=== PATIENT | female | born 1995 | race Caucasian/White ===

== ENCOUNTER 2016-09-23 11:04 | Observation (INO) ==
[2016-09-23 11:33] LABS: Clarity,Urine Clear (Clear); Color,Urine Yellow (Yellow)
[2016-09-23 11:34] LABS: Bilirubin,Urine Negative (Negative); Blood,Urine Negative (Negative); Glucose,Urine (UA) Normal (Normal); Ketones,Urine Negative (Negative); Leukocyte Esterase,Urine Negative (Negative); Nitrite,Urine Negative (Negative); PH,Urine 6.5 pH Units (5.0-8.0); Protein,Urine Negative (Neg-Trace); Specific Gravity,Urine 1.017 (1.010-1.025); Urobilinogen,Urine Normal (Normal)
--- NOTE | 2016-09-23 11:58 | Discharge Summary ---
Date of Encounter: 09/23/16 Time of Encounter: 11:59 - Discharge Diagnosis (1) 24 weeks gestation of Priority: Secondary Status: Acute Comments: FHT's 120's with moderate variabilty. No contractions noted on toco. uterus palpates soft. Patient states good movement. Denies leaking of fluid, vaginal bleeding, burning with urination. (2) Muscle strain Priority: Primary Status: Acute Comments: CVA tenderness on right side that radiates to suprapubic region. Pain is worse when on her feet at work. 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 Urinalysis negative Flexeril given in hospital x1 dose and discharged home. Patient to rest at home on left side for the rest of the weekend Patient may use warmth and tylenol at home for pain If pain has not improved by Sunday, will be seen in the office by Dr Najera Patient instructed on when to return to care POC discussed with Dr Najera - Discharge Medications Allergies/Adverse Reactions: Allergies cefuroxime [From Ceftin] Allergy (Verified 08/12/16 12:27) Vomiting Data Procedures and tests throughout hospitalization: Laboratory Tests 09/23/16 11:17 Urine Color Yellow Urine Clarity Clear Urine pH 6.5 Ur Specific [place] 1.017 Urine Protein Negative Urine Glucose (UA) Normal Urine Ketones Negative Urine Blood Negative Urine Nitrite Negative Urine Bilirubin Negative Urine Urobilinogen Normal Ur Leukocyte Esterase Negative Ur Culture Indicated? NO Labs on day of discharge: Labs from last 24 hours 09/23/16 11:17 Urine Color Yellow Urine Clarity Clear Urine pH 6.5 Ur Specific [place] 1.017 Urine Protein Negative Urine Glucose (UA) Normal Urine Ketones Negative Urine Blood Negative Urine Nitrite Negative Urine Bilirubin Negative Urine Urobilinogen Normal Ur Leukocyte Esterase Negative Ur Culture Indicated? 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: Total time spent providing and/or coordinating discharge services: Time Spent: Less than 30 minutes Exam - Constitutional General appearance IM: cooperative, A&O X 3, pleasant - Respiratory Respiratory exam: Present: CTAB - Cardiovascular Cardiovascular exam IM: Present: RRR, +S1, +S2 - GI/Abdominal GI/Abdominal exam IM: normal bowel sounds, soft Additional comments: CVA tenderness on right side; lower abdominal tenderness - Additional comments: Funal height 2/u, soft, nontender, no contractions per TOCO FHT 120's with moderate variability - Extremities Exam Extremities exam IM: Present: full ROM, normal capillary refill, normal inspection, radial pulses palpable and symetrical - Neurological Exam Neurological exam: alert, oriented X3, reflexes normal - VTE Reasons for not Prescribing Prophylaxis: Treatment not Indicated - Low risk for VTE
== END 2016-09-23 12:21 | disposition home or self-care (01) ==
LOC: 1NENULAB
PROVIDERS: ADMIT Obstetrics & Gynecology; ATTEND Obstetrics & Gynecology

== ENCOUNTER → 2016-11-03 12:02 | Observation (INO) ==
[2016-11-03 08:12] VITALS: BP 140/78
[2016-11-03 08:20] LABS: Bilirubin,Urine Negative (Negative); Blood,Urine Negative (Negative); Clarity,Urine Cloudy (Clear); Color,Urine Yellow (Yellow); Glucose,Urine (UA) Normal (Normal); Ketones,Urine Negative (Negative); Leukocyte Esterase,Urine Moderate (Negative); Nitrite,Urine Negative (Negative); PH,Urine 6.5 pH Units (5.0-8.0); Protein,Urine Negative (Neg-Trace); Specific Gravity,Urine 1.018 (1.010-1.025); Urobilinogen,Urine Normal (Normal)
[2016-11-03 08:21] LABS: Bacteria,Urine Moderate per hpf (None-Few); Basophils # 0.1 K/mcL (0.0-0.2); Basophils % 0.3 %; Eosinophils # 0.1 K/mcL (0.0-0.6); Eosinophils % 0.6 %; Hemoglobin 11.9 g/dL (11.5-15.4); Hyaline Casts,Urine None Seen per lpf (None-Few); Immature Granulocytes % 1.1 % (0-4); Lymphocytes % 16.3 %; Mean Corpuscular Hemoglobin 30.1 pg (28.0-33.3); Mean Corpuscular Volume 88.4 fL (83.0-100.0); Mean Platelet Volume 8.7 fL (9.4-12.4); Monocytes # 1.4 K/mcL (0.0-1.3); Monocytes % 7.3 %; Neutrophils # 13.9 K/mcL (1.6-8.9); Platelet Count 396 K/mcL (140-400); RBC,Urine 0-3 per hpf (0-3); Red Blood Count 3.96 M/mcL (3.82-4.97); Red Cell Distribution Width 12.3 % (11.5-14.5); Segmented Neutrophils % 74.4 %; Squamous Epithelial Cell,Urine Many per lpf (None-Few); WBC,Urine 30-50 per hpf (0-3)
[2016-11-03 08:27] LABS: Alanine Aminotransferase 9 Units/L (0-55); Aspartate Amino Transferase 14 Units/L (5-34); BUN/Creatinine Ratio 12 (6-26); Blood Urea Nitrogen 7 mg/dL (7-20); Lactate Dehydrogenase 155 Units/L (159-327); Uric Acid 3.6 mg/dL (2.6-6.0); eGFR For African Americans > 60 (> 60); eGFR For Non-African Americans > 60 (> 60)
--- NOTE | 2016-11-03 10:31 | Discharge Summary ---
Date of Encounter: 11/03/16 Time of Encounter: 10:32 - Discharge Diagnosis (1) Urinary tract infection affecting care of mother in third trimester, antepartum Priority: Primary Status: Acute Comments: Patient arrives to labor and delivery triage with c.o nausea and vomiting with upper abdominal pain for the past 24 hours. She states that she currently has positive movement, but it was decreased upon waking this am. She does not complain of contractions or back pain. Her blood pressure is elevated upon arrival. She denies headache, vision changes, leaking of fluid, and vaginal bleeding/discharge. Plan: Serial blood pressures IV bolus of LR x 1 liter PIH labs Urinalysis and culture if indicated Zofran IV x 1 dose NST Urinalysis indicative of probable infection - Send urine for culture Start on Macrobid prophylactically Discharge home with labor precautions and kick counts Patient to follow up with routine care in office and prn POC per consult with Dr Perry. (2) Upper abdominal pain of unknown etiology Priority: Primary Status: Acute Comments: Patient c/o nausea and vomiting for 24 hours along with upper abdominal pain IV fluid bolus of 1 liter Zofran IV x 1 (3) Decreased movement Priority: Secondary Status: Acute Comments: NST ordered - reactive. minimal irregular contractions noted (4) 30 weeks gestation of Priority: Secondary Status: Acute Comments: F/U in office for routine care and PRN (5) NST (non-stress test) reactive Priority: Secondary Status: Acute Comments: Baseline 130's with moderate variability, 15 x15 accels, no decels, category I tracing Minimal irregular contractions noted on toco. Palpate mild, uterus palpates soft between contractions (6) Hypertension affecting in third trimester Priority: Secondary Status: Acute Comments: PIH labs sent and WNL Blood pressure improved during triage stay. 118/56 most recent pressure. - Discharge Medications Prescriptions: Nitrofurantoin (BID) [Macrobid] 100 mg PO BID #14 capsule Home Medications: Nitrofurantoin (BID) [Macrobid] 100 mg PO BID #14 capsule 11/03/16 [Rx] Allergies/Adverse Reactions: Allergies cefuroxime [From Ceftin] Allergy (Verified 08/12/16 12:27) Vomiting Data Procedures and tests throughout hospitalization: Laboratory Tests 11/03/16 11/03/16 11/03/16 08:05 08:05 08:05 WBC 18.7 H RBC 3.96 Hgb 11.9 Hct 35.0 L MCV 88.4 MCH 30.1 MCHC 34.0 RDW 12.3 Plt Count 396 MPV 8.7 L Immature Gran % 1.1 Seg Neutrophils % 74.4 Lymphocytes % 16.3 Monocytes % 7.3 Eosinophils % 0.6 Basophils % 0.3 Neutrophils # 13.9 H Lymphocytes # 3.0 Monocytes # 1.4 H Eosinophils # 0.1 Basophils # 0.1 BUN 7 Creatinine 0.59 Est GFR ( Amer) > 60 Est GFR (Non-Af Amer) > 60 BUN/Creatinine Ratio 12 Uric Acid 3.6 AST 14 ALT 9 Lactate Dehydrogenase 155 L Urine Color Yellow Urine Clarity Cloudy A Urine pH 6.5 Ur Specific [place] 1.018 Urine Protein Negative Urine Glucose (UA) Normal Urine Ketones Negative Urine Blood Negative Urine Nitrite Negative Urine Bilirubin Negative Urine Urobilinogen Normal Ur Leukocyte Esterase Moderate H Urine Microscopic RBC 0-3 Urine Microscopic WBC 30-50 H Ur Squamous Epith Cells Many H Urine Bacteria Moderate H Hyaline Casts None Seen Ur Culture Indicated? YES A Labs on day of discharge: Labs from last 24 hours 11/03/16 11/03/16 11/03/16 08:05 08:05 08:05 WBC 18.7 H RBC 3.96 Hgb 11.9 Hct 35.0 L MCV 88.4 MCH 30.1 MCHC 34.0 RDW 12.3 Plt Count 396 MPV 8.7 L Immature Gran % 1.1 Seg Neutrophils % 74.4 Lymphocytes % 16.3 Monocytes % 7.3 Eosinophils % 0.6 Basophils % 0.3 Neutrophils # 13.9 H Lymphocytes # 3.0 Monocytes # 1.4 H Eosinophils # 0.1 Basophils # 0.1 BUN 7 Creatinine 0.59 Est GFR ( Amer) > 60 Est GFR (Non-Af Amer) > 60 BUN/Creatinine Ratio 12 Uric Acid 3.6 AST 14 ALT 9 Lactate Dehydrogenase 155 L Urine Color Yellow Urine Clarity Cloudy A Urine pH 6.5 Ur Specific [place] 1.018 Urine Protein Negative Urine Glucose (UA) Normal Urine Ketones Negative Urine Blood Negative Urine Nitrite Negative Urine Bilirubin Negative Urine Urobilinogen Normal Ur Leukocyte Esterase Moderate H Urine Microscopic RBC 0-3 Urine Microscopic WBC 30-50 H Ur Squamous Epith Cells Many H Urine Bacteria Moderate H Hyaline Casts None Seen Ur Culture Indicated? 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: Total time spent providing and/or coordinating discharge services: Time Spent: Less than 30 minutes Exam - Constitutional Vitals: Temp Pulse Resp BP 97.9 F 90 14 140/78 11/03/16 08:08 11/03/16 08:08 11/03/16 08:08 11/03/16 08:08 General appearance IM: cooperative, A&O X 3, pleasant - Respiratory Respiratory exam: Present: CTAB - Cardiovascular Cardiovascular exam IM: Present: RRR, +S1, +S2 - GI/Abdominal GI/Abdominal exam IM: normal bowel sounds, soft - Rectal Rectal exam: deferred - Additional comments: Uterus soft, gravid, and appropriate for gestational age FHTs 130's with moderate variability, 15x15 accels, no decels, category I tracing Occasional contractions Reactive NST - Extremities Exam Extremities exam IM: Present: normal capillary refill, normal inspection - Neurological Exam Neurological exam: alert, oriented X3 - VTE Reasons for not Prescribing Prophylaxis: Treatment not Indicated - Low risk for VTE
[~2016-11-03 12:02] MED LIST: Ondansetron 4 MG/2 ML VIAL IVP SCH; Ondansetron 4 MG/2 ML VIAL ONE; Ringers Solution, Lactated 1,000 ML IVC ONE; Ringers Solution, Lactated 1,000 ML ONE
== END | disposition home or self-care (01) ==
LOC: 1NENULAB
PROVIDERS: ADMIT Obstetrics & Gynecology; ATTEND Obstetrics & Gynecology

== ENCOUNTER 2016-12-13 12:47 | Observation (INO) ==
[2016-12-13 13:56] LABS: Basophils % 0.3 %; Eosinophils # 0.1 K/mcL (0.0-0.6); Eosinophils % 0.9 %; Hematocrit 35.6 % (35.3-44.9); Hemoglobin 11.8 g/dL (11.5-15.4); Immature Granulocytes % 0.7 % (0-4); Lymphocytes # 2.8 K/mcL (0.6-4.6); Lymphocytes % 26.1 %; Mean Corpuscular HGB Conc 33.1 g/dL (31.6-35.5); Mean Corpuscular Hemoglobin 29.1 pg (28.0-33.3); Mean Corpuscular Volume 87.9 fL (83.0-100.0); Mean Platelet Volume 9.6 fL (9.4-12.4); Monocytes # 0.6 K/mcL (0.0-1.3); Monocytes % 5.2 %; Neutrophils # 7.2 K/mcL (1.6-8.9); Platelet Count 275 K/mcL (140-400); Red Blood Count 4.05 M/mcL (3.82-4.97); Red Cell Distribution Width 13.5 % (11.5-14.5); Segmented Neutrophils % 66.8 %
[2016-12-13 14:01] LABS: Bilirubin,Urine Negative (Negative); Blood,Urine Negative (Negative); Clarity,Urine Cloudy (Clear); Color,Urine Yellow (Yellow); Glucose,Urine (UA) Normal (Normal); Ketones,Urine Negative (Negative); Leukocyte Esterase,Urine Moderate (Negative); Nitrite,Urine Negative (Negative); PH,Urine 6.5 pH Units (5.0-8.0); Protein,Urine Negative (Neg-Trace); Specific Gravity,Urine 1.017 (1.010-1.025); Urobilinogen,Urine Normal (Normal)
[2016-12-13 14:02] LABS: Bacteria,Urine Moderate per hpf (None-Few); Hyaline Casts,Urine None Seen per lpf (None-Few); Squamous Epithelial Cell,Urine Many per lpf (None-Few); WBC,Urine 15-30 per hpf (0-3)
[2016-12-13 14:05] LABS: Protein/Creatinine Ratio,Urine 0.13 mg/mg (0-0.20)
[2016-12-13 14:09] LABS: Alanine Aminotransferase 10 Units/L (0-55); Aspartate Amino Transferase 19 Units/L (5-34); BUN/Creatinine Ratio 12 (6-26); Blood Urea Nitrogen 8 mg/dL (7-20); Lactate Dehydrogenase 191 Units/L (159-327); Uric Acid 4.9 mg/dL (2.6-6.0); eGFR For African Americans > 60 (> 60); eGFR For Non-African Americans > 60 (> 60)
--- NOTE | 2016-12-13 14:21 | OB/GYN Progress Note ---
Date of Encounter: 12/13/16 Time of Encounter: 14:18 - Assessment and Plan (1) 36 weeks gestation of Current Visit: Yes Status: Acute (2) Hypertension affecting in third trimester Current Visit: No Status: Acute BP normal prior to discharge. Labs WNL. UPCR normal. Discharge home with precautions. Follow-up as scheduled. Subjective - Subjective Interval history: 21 year-old presenting at 36w1d with c/o headache and elevated blood pressures at home. She denies LOF or VB. Good FM. No other complaints. She says the headache is 6/10 at her temples and around the back of her head. She does admit that these headaches occur frequently for her at baseline. Antepartum ROS: movement normal, no loss of fluid, no vaginal bleeding, no contractions Objective - Vital Signs Vital Signs: Intake and Output 12/12/16 12/13/16 12/13/16 23:59 07:59 15:59 Other: Weight 79.5 kg Patient Weight 12/13/16 23:59 Weight 79.5 kg - Exam FHR: category 1 FHR comments: NST reactive Auscultation: bilateral: normal Abdomen: Present: soft, gravid Uterus: Absent: tenderness - Labs Labs: Abnormal lab results Urine Clarity Cloudy (Clear) A 12/13/16 13:40 Ur Leukocyte Esterase Moderate (Negative) H 12/13/16 13:40 Urine Microscopic WBC 15-30 per hpf (0-3) H 12/13/16 13:40 Ur Squamous Epith Cells Many per lpf (None-Few) H 12/13/16 13:40 Urine Bacteria Moderate per hpf (None-Few) H 12/13/16 13:40 Ur Culture Indicated? YES (NO) A 12/13/16 13:40
== END 2016-12-13 14:26 | disposition home or self-care (01) ==
LOC: 1NENULAB
PROVIDERS: ADMIT Obstetrics & Gynecology; ATTEND Obstetrics & Gynecology

== ENCOUNTER → 2016-12-15 01:05 | Observation (INO) ==
--- NOTE | 2016-12-14 23:50 | OB/GYN Progress Note ---
Date of Encounter: 12/15/16 Time of Encounter: 23:47 - Assessment and Plan (1) induced hypertension Status: Acute Pt's BP 147/94 on admission. Last BPs 134/86, 137/87 which is consistant with previous vitals. PIH labs are negative. NST reactive On admission, vaginal exam /-2 per RN, consistant with exam in office .. Pt complains of contractions every 1-2 times per hour, Pt seen in traige yesterday for elevated complaints with negative labs. . Keep next appointment. Discharged home with labor, movement and PIH precautions. Pt and family verbalized understanding . Discussed with NATHALIE Jesus. I saw this patient and reviewed charting in agreement with documented assessment and plan, other than my changes. Qualifiers: Trimester: third trimester Qualified Code(s): O13.3 - Gestational [ -induced] hypertension without significant proteinuria, third trimester (2) 36 weeks gestation of Status: Acute Pt follows care with Dr. Najera, last appt yesterday (3) NST (non-stress test) reactive Status: Acute Baseline bpm: 125 Moderate Variability Accels 15x15 Subjective - Subjective Principal diagnosis: PIH Evaluation Interval history: Ms. Nguyen is a 21 yo at 36 + 2 complaining of decreased movement, abdominal pain and headache. States headaches was a 7-8 at 3 PM s/p Tylenol, and now rates it at a 5-6 on admission. Abdominal pain resolved by admission. Pt was seen in office by Dr. Najera today for evaluation of self-reported home BP values noted first three days ago. PMHX include syncopal episodes last year which pt denies she has experienced in this and anxiety. Medications: She has not taken anticonvulsants during this . Is currently taken Buspar 5 mg BID daily. Social Hx: Endorses active marijuana use. Antepartum ROS: new complaints (decreased movement), contractions, other ( no vision changes, no chest pain, no SOB, no palpitation, no urinary symptoms), no loss of fluid, no vaginal bleeding Objective - Vital Signs Vital Signs: Intake and Output T: 97.4 BP: 137/87 12/14/16 12/14/16 12/14/16 07:59 15:59 23:59 Other: Weight 72.9 kg Patient Weight 12/14/16 23:59 Weight 72.9 kg - Exam FHR: category 1 FHR comments: Baseline 125 Abdomen: Present: normal appearance, soft, gravid Uterus: Present: normal Cervical dilation: 2, performed by RN Cervix effacement: 80
[2016-12-14 23:54] LABS: Bilirubin,Urine Negative (Negative); Blood,Urine Negative (Negative); Clarity,Urine Clear (Clear); Color,Urine Yellow (Yellow); Glucose,Urine (UA) Normal (Normal); Ketones,Urine Negative (Negative); Leukocyte Esterase,Urine Negative (Negative); Nitrite,Urine Negative (Negative); PH,Urine 6.5 pH Units (5.0-8.0); Protein,Urine Negative (Neg-Trace); Specific Gravity,Urine 1.025 (1.010-1.025); Urobilinogen,Urine Normal (Normal)
[2016-12-15 00:09] LABS: Basophils % 0.2 %; Eosinophils # 0.2 K/mcL (0.0-0.6); Eosinophils % 1.3 %; Hematocrit 34.6 % (35.3-44.9); Hemoglobin 11.7 g/dL (11.5-15.4); Immature Granulocytes % 0.8 % (0-4); Immature Platelets 2.9 % (1.1-6.1); Lymphocytes % 30.4 %; Mean Corpuscular HGB Conc 33.8 g/dL (31.6-35.5); Mean Corpuscular Hemoglobin 29.8 pg (28.0-33.3); Mean Corpuscular Volume 88.3 fL (83.0-100.0); Mean Platelet Volume 9.7 fL (9.4-12.4); Monocytes # 0.9 K/mcL (0.0-1.3); Monocytes % 6.9 %; Neutrophils # 7.8 K/mcL (1.6-8.9); Platelet Count 280 K/mcL (140-400); Red Blood Count 3.92 M/mcL (3.82-4.97); Red Cell Distribution Width 13.7 % (11.5-14.5); Segmented Neutrophils % 60.4 %
[2016-12-15 00:25] LABS: Alanine Aminotransferase 10 Units/L (0-55); Aspartate Amino Transferase 19 Units/L (5-34); BUN/Creatinine Ratio 18 (6-26); Blood Urea Nitrogen 12 mg/dL (7-20); Lactate Dehydrogenase 183 Units/L (159-327); Uric Acid 4.7 mg/dL (2.6-6.0); eGFR For African Americans > 60 (> 60); eGFR For Non-African Americans > 60 (> 60)
[2016-12-15 00:28] LABS: Protein/Creatinine Ratio,Urine 0.11 mg/mg (0-0.20)
== END | disposition home or self-care (01) ==
LOC: 1NENULAB
PROVIDERS: ADMIT Advanced Practice Midwife; ATTEND Advanced Practice Midwife

== ENCOUNTER 2016-12-18 08:40 | Observation (INO) ==
[2016-12-18 09:24] LABS: Basophils % 0.4 %; Eosinophils # 0.2 K/mcL (0.0-0.6); Eosinophils % 1.6 %; Hematocrit 35.6 % (35.3-44.9); Immature Granulocytes % 0.9 % (0-4); Lymphocytes % 26.3 %; Mean Corpuscular HGB Conc 33.7 g/dL (31.6-35.5); Mean Corpuscular Hemoglobin 29.9 pg (28.0-33.3); Mean Corpuscular Volume 88.6 fL (83.0-100.0); Mean Platelet Volume 9.5 fL (9.4-12.4); Monocytes # 0.7 K/mcL (0.0-1.3); Monocytes % 6.4 %; Neutrophils # 7.4 K/mcL (1.6-8.9); Platelet Count 241 K/mcL (140-400); Red Blood Count 4.02 M/mcL (3.82-4.97); Red Cell Distribution Width 13.9 % (11.5-14.5); Segmented Neutrophils % 64.4 %
[2016-12-18 09:26] LABS: Bilirubin,Urine Negative (Negative); Blood,Urine Negative (Negative); Clarity,Urine Cloudy (Clear); Color,Urine Yellow (Yellow); Glucose,Urine (UA) Normal (Normal); Ketones,Urine Negative (Negative); Leukocyte Esterase,Urine Small (Negative); Nitrite,Urine Negative (Negative); PH,Urine 6.5 pH Units (5.0-8.0); Protein,Urine Negative (Neg-Trace); Specific Gravity,Urine 1.025 (1.010-1.025); Urobilinogen,Urine Normal (Normal)
[2016-12-18 09:37] LABS: Alanine Aminotransferase 8 Units/L (0-55); Aspartate Amino Transferase 18 Units/L (5-34); BUN/Creatinine Ratio 16 (6-26); Blood Urea Nitrogen 10 mg/dL (7-20); Lactate Dehydrogenase 192 Units/L (159-327); Uric Acid 4.5 mg/dL (2.6-6.0); eGFR For African Americans > 60 (> 60); eGFR For Non-African Americans > 60 (> 60)
[2016-12-18 09:38] LABS: Bacteria,Urine Few per hpf (None-Few); Squamous Epithelial Cell,Urine Few per lpf (None-Few); WBC,Urine 0-3 per hpf (0-3)
[2016-12-18 10:00] LABS: Protein/Creatinine Ratio,Urine 0.14 mg/mg (0-0.20)
--- NOTE | 2016-12-18 10:02 | OB/GYN Progress Note ---
Date of Encounter: 12/18/16 Time of Encounter: 09:49 - Assessment and Plan (1) 36 weeks gestation of Current Visit: No Status: Acute (2) Hypertension affecting in third trimester Current Visit: No Status: Acute Patient has been evaluated in triage for PIH multiple times in the past during this . Will check PIH labs, P/c ratio to evaluate for pre-eclampsia. Will monitor BP. PIH labs and urine creatinine ratio are all WNL. Patients BPs have normalized: 134/72, 127/68, 133/82 for last 3 pressures this is patients baseline. Will discharge to home. Discussed labor and Pre-E precautions, when to return to triage or call provider, Pt and family verbalize understanding and all questions answered. Subjective - Subjective Principal diagnosis: PIH Interval history: 21 yo F at 36 weeks and 6 days presents to labor and delivery for PIH. Patient reports waking up this morning with a headache that feels similar to her headaches from when she had hypertension prior to . She used to have HTN but resolved once she lost 70lbs. Patient has been evaluated for this multiple times in the past during this . Patient checked blood pressure at home and it was reportedly 154/105 so she came in. She has been running the high 130s/high 80s in the office. She does report some bright spots/ floaters in her vision, but denies blurry vision. Patient reports good movements. Patient reports 1 epsiode of vomiting last night and 1 episode of diarrhea, as well as some mucus from her vagina. Patient denies Chest Pain, SOB , Abd pain, contractions, vaginal bleeding, loss of fluid, urinary symptoms. Antepartum ROS: movement normal, no loss of fluid, no vaginal bleeding, no contractions Objective - Vital Signs Vital Signs: Intake and Output 12/17/16 12/18/16 12/18/16 23:59 07:59 15:59 Other: Weight 80.3 kg Patient Weight 12/18/16 23:59 Weight 80.3 kg - Exam FHR: auscultation normal Auscultation: bilateral: normal Abdomen: Present: normal appearance, soft, gravid, other (bowel sounds normal). Absent: tenderness Cervical dilation: 1-2/70/-2 Per RN Comments: Heart RRR, Known murmur. HEENT: PERRL, EOMI, moist mucous membranes Extremities: no pedal edema, +1 DTR, - clonus - Labs Labs: Abnormal lab results WBC 11.4 K/mcL (4.3-11.1) H 12/18/16 09:15 Urine Clarity Cloudy (Clear) A 12/18/16 09:10 Ur Leukocyte Esterase Small (Negative) H 12/18/16 09:10 Ur Culture Indicated? YES (NO) A 12/18/16 09:10
== END 2016-12-18 10:38 | disposition home or self-care (01) ==
LOC: 1NENULAB
PROVIDERS: ADMIT Student in an Organized Health Care Education/Training Program; ATTEND Student in an Organized Health Care Education/Training Program

== ENCOUNTER 2016-12-21 00:41 | Observation (INO) ==
[2016-12-21 01:02] LABS: Bilirubin,Urine Negative (Negative); Blood,Urine Negative (Negative); Clarity,Urine Cloudy (Clear); Color,Urine Yellow (Yellow); Glucose,Urine (UA) Normal (Normal); Ketones,Urine Negative (Negative); Leukocyte Esterase,Urine Small (Negative); Nitrite,Urine Negative (Negative); PH,Urine 6.5 pH Units (5.0-8.0); Protein,Urine Trace mg/dL (Neg-Trace); Specific Gravity,Urine 1.028 (1.010-1.025); Urobilinogen,Urine Normal (Normal)
[2016-12-21 01:04] LABS: Bacteria,Urine Moderate per hpf (None-Few); Hyaline Casts,Urine None Seen per lpf (None-Few); RBC,Urine 0-3 per hpf (0-3); Squamous Epithelial Cell,Urine Many per lpf (None-Few)
--- NOTE | 2016-12-21 01:29 | Discharge Summary ---
Date of Encounter: 12/21/16 - Discharge Medications Home Medications: Buspirone HCl [Buspar] 5 mg PO BID 12/13/16 [History] Vit Calc,Iron,Folic [ Vitamins] 1 tab PO DAILY 12/13/16 [ History] Allergies/Adverse Reactions: Allergies cefuroxime [From Ceftin] Allergy (Verified 12/14/16 23:03) Vomiting Data Procedures and tests throughout hospitalization: Laboratory Tests 12/21/16 00:50 Urine Color Yellow Urine Clarity Cloudy A Urine pH 6.5 Ur Specific [place] 1.028 H Urine Protein Trace Urine Glucose (UA) Normal Urine Ketones Negative Urine Blood Negative Urine Nitrite Negative Urine Bilirubin Negative Urine Urobilinogen Normal Ur Leukocyte Esterase Small H Urine Microscopic RBC 0-3 Urine Microscopic WBC 5-15 H Ur Squamous Epith Cells Many H Urine Bacteria Moderate H Hyaline Casts None Seen Ur Culture Indicated? YES A Labs on day of discharge: Labs from last 24 hours 12/21/16 00:50 Urine Color Yellow Urine Clarity Cloudy A Urine pH 6.5 Ur Specific [place] 1.028 H Urine Protein Trace Urine Glucose (UA) Normal Urine Ketones Negative Urine Blood Negative Urine Nitrite Negative Urine Bilirubin Negative Urine Urobilinogen Normal Ur Leukocyte Esterase Small H Urine Microscopic RBC 0-3 Urine Microscopic WBC 5-15 H Ur Squamous Epith Cells Many H Urine Bacteria Moderate H Hyaline Casts None Seen Ur Culture Indicated? 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 FHR 35 bpm moderate variability +15x15 accels no decels noted. Contractions irregular. SVE 2/80/-2 per RN - VTE Reasons for not Prescribing Prophylaxis: Treatment not Indicated - Low risk for VTE
--- NOTE | 2016-12-21 01:36 | OB/GYN History & Physical ---
Date of Encounter: 12/21/16 Time of Encounter: 01:35 Assessment and Plan (1) 37 weeks gestation of Current visit: Yes Status: Acute Pt follows care with Dr. Najera. (2) NST (non-stress test) reactive Current visit: No Status: Acute FHT: Category I Baseline 135 bpm Variability: Moderate Accels:15 x 15 Contractions q 4-6 min (3) Hypertension affecting in third trimester Current visit: No Status: Acute Pt's BP 141/85 on admission. Plan to monitor FHT and initiative - induced hypertension evaluation. PIH labs are pending. NST reactive. On admission, vaginal exam /-2 per RN. Pt was seen 6 days ago with cervical assessment . Pt receives appropriate care with Dr. Najera. Pt amenable to plan and verbalized understanding (4) GBS (group B streptococcus) infection Current visit: Yes Status: Acute GBS positive on 12/14/16 Plan for Intrapartum antibiotic prophylaxis History of Present Illness Chief complaint: Back Pain HPI: Ms. Nguyen is a 21 year old F at 37+1 presenting for back pain following intercourse and contractions. She endorses active movement, but reports relative decrease in activity. Denies vaginal bleeding and denies loss of fluid. Pt has a history of headaches but they have resolved with her usual doses of analgesics. She denies blurred vision, flashing lights or scotomata. has been complicated by an elevated SBP >140 readings during most recent hospitalization and outpatient visit. Pt receives regular care with [facility]. ROS: Positive for intermittent headaches. Denies headache currently. No SOB. No chest pain. No N/V. labs: GBS POSITIVE/A NEG/Varicella IgG AB POS/Rubella IgG Ab Negative/ Treponema Pallidum Ab NEG/Hep B Surface Antigen Nonreative/HIV Ab Nontreacive Past Med Surg Social Fam HX - Past Medical History Medical history: seizures Psychiatric history: anxiety - Past Surgical History Surgical History: no surgical history - Social History Smoking Status: Former smoker Smokeless Tobacco Status: No Alcohol use: none Drug use: marijuana - Family History Mother Adopted: No Living Status: Still Living Hx Family Cardiac Disorders: Yes (HYPERTENSION) Obstetrical History - Pregnancies : 1 Para: 0 Medications and Allergies Buspirone HCl [Buspar] 5 mg PO BID 12/13/16 [History] Vit Calc,Iron,Folic [ Vitamins] 1 tab PO DAILY 12/13/16 [ History] Allergies cefuroxime [From Ceftin] Allergy (Verified 12/14/16 23:03) Vomiting Review of System OB - Constitutional Constitutional ROS IM: as per HPI - Cardiovascular Cardiovascular: as per HPI - Respiratory Respiratory: as per HPI - Gastrointestinal Gastrointestinal: as per HPI Exam - Constitutional Constitutional: well developed, well nourished, other - HEENT HEENT: EOMI, Normocephaly - Lungs Respiratory exam: CTAB (No chest wall tenderness. No accessory muscle use. No respiratory distress. ) - Cardiovascular Cardiovascular exam: RRR - Breasts Breast: bilateral: normal - Abdomen Abdomen: Present: bowel sounds normal, gravid, non tender - Extremities Extremities exam: pedal edema (+1), radial pulses palpable and symetrical ( Upper extremity: Left Hand: Wart centralized on left thumb) - Cervix Dilation: 2 (performed by RN) Effacement: 80 Station: -2 - Uterus Uterus exam: Present: normal size, normal contour Results Abnormal lab results Urine Clarity Cloudy (Clear) A 12/21/16 00:50 Ur Specific [place] 1.028 (1.010-1.025) H 12/21/16 00:50 Ur Leukocyte Esterase Small (Negative) H 12/21/16 00:50 Urine Microscopic WBC 5-15 per hpf (0-3) H 12/21/16 00:50 Ur Squamous Epith Cells Many per lpf (None-Few) H 12/21/16 00:50 Urine Bacteria Moderate per hpf (None-Few) H 12/21/16 00:50 Ur Culture Indicated? YES (NO) A 12/21/16 00:50 All other labs normal. - VTE Reasons for not Prescribing Prophylaxis: Treatment not Indicated - Low risk for VTE
[2016-12-21 02:47] LABS: Basophils % 0.3 %; Eosinophils # 0.2 K/mcL (0.0-0.6); Eosinophils % 1.2 %; Hematocrit 37.1 % (35.3-44.9); Hemoglobin 12.6 g/dL (11.5-15.4); Lymphocytes # 3.7 K/mcL (0.6-4.6); Lymphocytes % 24.2 %; Mean Corpuscular Hemoglobin 30.2 pg (28.0-33.3); Mean Platelet Volume 9.8 fL (9.4-12.4); Monocytes # 0.9 K/mcL (0.0-1.3); Monocytes % 5.7 %; Neutrophils # 10.5 K/mcL (1.6-8.9); Platelet Count 289 K/mcL (140-400); Red Blood Count 4.17 M/mcL (3.82-4.97); Red Cell Distribution Width 14.2 % (11.5-14.5); Segmented Neutrophils % 67.6 %
[2016-12-21 02:58] LABS: Alanine Aminotransferase 8 Units/L (0-55); Aspartate Amino Transferase 22 Units/L (5-34); BUN/Creatinine Ratio 13 (6-26); Blood Urea Nitrogen 9 mg/dL (7-20); Lactate Dehydrogenase 224 Units/L (159-327); Uric Acid 4.7 mg/dL (2.6-6.0); eGFR For African Americans > 60 (> 60); eGFR For Non-African Americans > 60 (> 60)
--- NOTE | 2016-12-21 03:32 | Discharge Summary ---
Date of Encounter: 12/21/16 Time of Encounter: 03:15 - Discharge Diagnosis (1) 37 weeks gestation of Priority: Primary Status: Acute Comments: 21 yo F with gestational hypertension, labs and evaluation in hospitalization did not meet criteria for pre-eclampsia PIH labs are negative. NST reactive Pt receives regular care with Dr. Najera, next appointment today @ 1 :15 Discharged home with labor, movement and PIH precautions, Pt verbalized understanding (2) NST (non-stress test) reactive Priority: Primary Status: Acute Comments: Baseline bpm: 135 bpm Moderate Variability Accels 15 x 15 (3) induced hypertension Priority: Primary Status: Acute Comments: PIH lab evaluation and labs did not meet criteria for pre-eclampsia Qualifiers: Trimester: third trimester Qualified Code(s): O13.3 - Gestational [ -induced] hypertension without significant proteinuria, third trimester (4) [place] Randle contractions Priority: Secondary Status: Acute Comments: Contractions, no bleeding or vaginal discharge, noted to have relieved by resting over hospitalization Cervical exam result unchanged, per nurse (5) GBS (group B streptococcus) infection Priority: Secondary Status: Acute Comments: GBS positive outpatient Plan for intrapartum prophylaxis - Discharge Medications Home Medications: Buspirone HCl [Buspar] 5 mg PO BID 12/13/16 [History] Vit Calc,Iron,Folic [ Vitamins] 1 tab PO DAILY 12/13/16 [ History] Allergies/Adverse Reactions: Allergies cefuroxime [From Ceftin] Allergy (Verified 12/14/16 23:03) Vomiting Data Procedures and tests throughout hospitalization: Laboratory Tests 12/21/16 12/21/16 12/21/16 00:50 01:40 01:40 WBC 15.4 H RBC 4.17 Hgb 12.6 Hct 37.1 MCV 89.0 MCH 30.2 MCHC 34.0 RDW 14.2 Plt Count 289 MPV 9.8 Immature Gran % 1.0 Seg Neutrophils % 67.6 Lymphocytes % 24.2 Monocytes % 5.7 Eosinophils % 1.2 Basophils % 0.3 Neutrophils # 10.5 H Lymphocytes # 3.7 Monocytes # 0.9 Eosinophils # 0.2 Basophils # 0.0 BUN 9 Creatinine 0.68 Est GFR ( Amer) > 60 Est GFR (Non-Af Amer) > 60 BUN/Creatinine Ratio 13 Uric Acid 4.7 AST 22 ALT 8 Lactate Dehydrogenase 224 Urine Color Yellow Urine Clarity Cloudy A Urine pH 6.5 Ur Specific [place] 1.028 H Urine Protein Trace Urine Glucose (UA) Normal Urine Ketones Negative Urine Blood Negative Urine Nitrite Negative Urine Bilirubin Negative Urine Urobilinogen Normal Ur Leukocyte Esterase Small H Urine Microscopic RBC 0-3 Urine Microscopic WBC 5-15 H Ur Squamous Epith Cells Many H Urine Bacteria Moderate H Hyaline Casts None Seen Ur Culture Indicated? YES A Labs on day of discharge: Labs from last 24 hours 12/21/16 12/21/16 12/21/16 01:40 01:40 00:50 WBC 15.4 H RBC 4.17 Hgb 12.6 Hct 37.1 MCV 89.0 MCH 30.2 MCHC 34.0 RDW 14.2 Plt Count 289 MPV 9.8 Immature Gran % 1.0 Seg Neutrophils % 67.6 Lymphocytes % 24.2 Monocytes % 5.7 Eosinophils % 1.2 Basophils % 0.3 Neutrophils # 10.5 H Lymphocytes # 3.7 Monocytes # 0.9 Eosinophils # 0.2 Basophils # 0.0 BUN 9 Creatinine 0.68 Est GFR ( Amer) > 60 Est GFR (Non-Af Amer) > 60 BUN/Creatinine Ratio 13 Uric Acid 4.7 AST 22 ALT 8 Lactate Dehydrogenase 224 Urine Color Yellow Urine Clarity Cloudy A Urine pH 6.5 Ur Specific [place] 1.028 H Urine Protein Trace Urine Glucose (UA) Normal Urine Ketones Negative Urine Blood Negative Urine Nitrite Negative Urine Bilirubin Negative Urine Urobilinogen Normal Ur Leukocyte Esterase Small H Urine Microscopic RBC 0-3 Urine Microscopic WBC 5-15 H Ur Squamous Epith Cells Many H Urine Bacteria Moderate H Hyaline Casts None Seen Ur Culture Indicated? YES A - Impressions 21 yo F presenting at 37+1 with contractions likely 2/2 to Andrew Randle Contraction, given no cervical change noted over hospitalization. On admission SBP > 140/90. PIH evaluation and labs did not meet criteria for pre-eclampsia. Date of admission: 12/21/16 00:41 Primary care physician: Dr. Najera Discharging clinician: Candace Lynch Anticipated date of discharge: 12/21/16 - Patient Status Disposition: Home, Self-Care Condition: Good - Discharge Instructions Additional Instructions: LABOR AND DELIVERY DISCHARGE INSTRUCTIONS Signs and Symptoms to be Reported to your Doctor Immediately: * Sudden gush, continuous or intermittent lead of fluid from vagina (note the time of gush and color of fluid) * Onset of bright red vaginal bleeding with or without pain (if you had a vaginal exam during this visit you may notice some dark red spotting. This is normal.) * Contractions that are 5 minutes apart (from the beginning of one contraction to the beginning of the next) and last 45-60 seonds; contractions that you can no longer walk, talk or laugh through. * A change in the baby's activity. This could be an increase or decrease in activity. * Severe headache which does not go away with tylenol. * Sudden swelling in the face, hands, arms and/or legs. * Upper abdominal pain - sometimes associated with heartburn or nausea and is not relieved by Maalox, Mylanta or Tums. * Kick Counts __ One hour after a meal, lay down on one side in a quiet place. Count the number of time the baby moves during an hour. If less than 6 movements, notify your physician Diet: *Force fluids, 8 to 10 tall glasses of fluid per day - may include popsicles and jello *Limit caffeine - this includes chocolate, coffee, tea, any soft drink containing such as all sindy, Harvey Yellow and Mountain Dew - Diet and Activity Activity: increase activity as tolerated Diet: advance to your usual diet (Counseled pt on importance of maintaing well hydrated ) Hospital Course PUBLIC [employer]IC[employer]OCIATE Reason for admission: other (Contractions ) Pertinent studies: PIH labs, vital signs monitoring did not meet criteria for pre-eclampsia Time Attestation: Total time spent providing and/or coordinating discharge services: Exam - Constitutional Vitals: BP 134/89 General appearance IM: cooperative, A&O X 3, no acute distress, answers questions appropriately - Respiratory Respiratory exam: Absent: accessory muscle use, chest wall tenderness, respiratory distress, tachypnea - GI/Abdominal GI/Abdominal exam IM: distended (gravid) - Additional comments: Cervical Exam performed by RN /-2 - Neurological Exam Neurological exam: alert, altered, normal gait - VTE Reasons for not Prescribing Prophylaxis: Treatment not Indicated - Low risk for VTE
== END 2016-12-21 03:23 | disposition home or self-care (01) ==
LOC: 1NENULAB
PROVIDERS: ADMIT Advanced Practice Midwife; ATTEND Advanced Practice Midwife

== ENCOUNTER 2017-01-02 08:00 | Inpatient (IN) ==
[2017-01-02] MEDS ORDERED: Naloxone 0.4 MG/ML INJ IVP PRN (08:24)
[2017-01-02] MEDS ORDERED: Ondansetron 4 MG/2 ML VIAL IVP PRN (08:24)
[2017-01-02] MEDS ORDERED: Famotidine 20 MG/2 ML VIAL IVP PRN (08:24)
[2017-01-02] MEDS ORDERED: Ringers Solution, Lactated 1,000 ML IVC SCH (08:30)
[2017-01-02 08:47] LABS: Basophils # 0.1 K/mcL (0.0-0.2); Basophils % 0.5 %; Eosinophils # 0.2 K/mcL (0.0-0.6); Eosinophils % 1.4 %; Hematocrit 36.4 % (35.3-44.9); Hemoglobin 12.3 g/dL (11.5-15.4); Lymphocytes # 2.8 K/mcL (0.6-4.6); Lymphocytes % 23.4 %; Mean Corpuscular HGB Conc 33.8 g/dL (31.6-35.5); Mean Corpuscular Hemoglobin 30.1 pg (28.0-33.3); Mean Platelet Volume 9.7 fL (9.4-12.4); Monocytes # 0.8 K/mcL (0.0-1.3); Monocytes % 6.6 %; Neutrophils # 7.9 K/mcL (1.6-8.9); Platelet Count 242 K/mcL (140-400); Red Blood Count 4.09 M/mcL (3.82-4.97); Red Cell Distribution Width 14.4 % (11.5-14.5); Segmented Neutrophils % 67.1 %
[2017-01-02 09:04] LABS: Alanine Aminotransferase 8 Units/L (0-55); Aspartate Amino Transferase 17 Units/L (5-34); BUN/Creatinine Ratio 15 (6-26); Blood Urea Nitrogen 10 mg/dL (7-20); eGFR For African Americans > 60 (> 60); eGFR For Non-African Americans > 60 (> 60)
[2017-01-02 09:05] LABS: Lactate Dehydrogenase 362 Units/L (159-327)
[2017-01-02] MEDS ORDERED: miSOPROStol 100 MCG TABLET PO STA (09:31)
[2017-01-02] MEDS ORDERED: Penicillin G Potassium 5,000,000 UNIT in D5% in Water (Mini-Bag+) 100 ML IVPB ONE (10:00)
--- NOTE | 2017-01-02 10:38 | Anesthesia Evaluation PreOp ---
Date of Encounter: 01/02/17 Time of Encounter: 10:35 - Past History Planned Operation: korey Cardiac History: HTN, Other (murmur) Pulmonary History: Former smoker (quit at ), Pack/yr (4) [employer] History: Seizures (neurology consult, etiology unknown, possible dehydration , possible poor nutritional habit at time), Syncope Other Medical History: Renal (possible stone), GERD Anesthesia History: No Prior Anesthetic Complications : Yes Test: Positive Alcohol Use: none, rarely Drug use: marijuana (pre ) Medications and Allergies Buspirone HCl [Buspar] 5 mg PO BID 12/13/16 [History] Vit Calc,Iron,Folic [ Vitamins] 1 tab PO DAILY 12/13/16 [ History] Labetalol [Trandate] 100 mg PO BID 01/02/17 [History] Allergies cefuroxime [From Ceftin] Allergy (Verified 12/14/16 23:03) Vomiting - Meds/Allergy Pre-op Review Medications Reviewed: Yes Allergies Reviewed: Yes Beta Blockers on Current Med List: Yes If Beta Blockers taken, Date/Time (Last Dose taken): labaetolol 6 am 01/02/17 Anesthesia Results - Labs 01/02/17 08:30 01/02/17 08:30 Anesthesia Exam see nsg note Height: 5'3" Weight: 170 lb NPO (# of Hours): 2 Pain Scale: 1 Pain Scale Used: Numeric (1 - 10) - HEENT Pupil (Motor): Pupils equal Mallampati: II Teeth: Normal Oral Opening: Greater than 3 - [employer] LOC: Oriented [employer] Motor: Normal RUE, Normal LUE, Normal RLE, Normal LLE, Normal Face [employer] Sensory: Normal: RUE, LUE, RLE, LLE, Face - Cardiac Rhythm: Regular Murmur: Systolic - Pulmonary Breath Sounds: bilateral Clear Respiratory Effort: Symmetrical Anesthesia Assess/Plan ASA Score: 3 (PIH, Anxiety, smoker, seizures) Anesthetic Plan: Regional Autologous Blood: No Monitoring Plan: Standard Monitors Recovery Plan: Other (KOREY risks discussed, questions answered, consented)
--- NOTE | 2017-01-02 11:14 | OB/GYN History & Physical ---
Date of Encounter: 01/02/17 Time of Encounter: 11:12 Assessment and Plan (1) 39 weeks gestation of Current visit: Yes Status: Acute admitted for IOL 50mcg Cytotec PO (2) GBS (group B streptococcus) infection Current visit: No Status: Acute Will start PCN prophylaxis History of Present Illness Chief complaint: Induction of labor for Dr. Najera HPI: Ms. Nguyen is a 21 year old female at 39w0d presents to labor and delivery for scheduled IOL for Dr. Najera. Patient reports +FM, denies LOF, VB or contractions. Blood type: A+, Rubella: nonimmune, Hep B: Negative, GBS: Positive. Past Med Surg Social Fam HX - Past Medical History Source: patient Medical history: seizures Psychiatric history: anxiety - Past Surgical History Surgical History: no surgical history - Social History Smoking Status: Former smoker Smokeless Tobacco Status: No Alcohol use: none, rarely Drug use: marijuana (pre ) Current living situation: Home - Independent Recent Out of Country Travel Within the Last 8 Weeks: No Exposure or Possible Exposure to Illness During Travel: No - Family History Mother Adopted: No Living Status: Still Living Hx Family Cardiac Disorders: Yes (hypertension) Hx Family Respiratory Disorders: No Hx Family Cancer: No Hx Family GI Disorders: No Hx Family Genitourinary Disorders: No Hx Family Endocrine Disorder: No Hx Family Musculoskeletal Disorders: No Hx Family Neuromuscular Disorders: No Hx Family Neurologic Disorders: No Hx Family HEENT Disorders: No Hx Family Autoimmune Disorders: No Hx Family Reproductive Disorders: No Hx Family Psychosocial Disorders: No Hx Family Medical Disorders: No Obstetrical History - Pregnancies : 1 Para: 0 Term: 0 : 0 Ab's: 0 Livin Medications and Allergies Buspirone HCl [Buspar] 5 mg PO BID 12/13/16 [History] Vit Calc,Iron,Folic [ Vitamins] 1 tab PO DAILY 12/13/16 [ History] Labetalol [Trandate] 100 mg PO BID 01/02/17 [History] Allergies cefuroxime [From Ceftin] Allergy (Verified 12/14/16 23:03) Vomiting Review of System OB - Constitutional Constitutional ROS IM: no chills, no fever(s), no headache(s) - Cardiovascular Cardiovascular: no edema, no pedal edema, no rapid heart rate, no slow heart rate, no syncope - Respiratory Respiratory: no dyspnea - Gastrointestinal Gastrointestinal: no constipation, no diarrhea, no heartburn, no nausea, no vomiting - Genitourinary Genitourinary: no abnormal vaginal bleeding, no dysuria, no flank pain, no urinary frequency, no urinary hesitancy, no urinary incontinence, no urinary urgency, no vaginal discharge, no vaginal odor, no vaginal pruritis Exam - Vital Signs Vital signs: Initial Vital Signs Temp Pulse Resp BP Pulse Ox 98.1 F 81 14 122/87 99 01/02/17 08:57 01/02/17 08:57 01/02/17 08:57 01/02/17 08:57 01/02/17 08:57 - Constitutional Constitutional: well developed, well nourished, no acute distress, average body habitus - HEENT HEENT: Normocephaly, Mucus Membranes Moist - Neck Neck exam: full ROM, supple - Lungs Respiratory exam: CTAB - Cardiovascular Cardiovascular exam: RRR, +S1, +S2 - Abdomen Abdomen: Present: bowel sounds normal, gravid, non tender - Extremities Extremities exam: full ROM, normal capillary refill Deep Tendon Reflex Grade: 2+ Normal - Cervix Dilation: 2 (in office last exam) - Uterus Uterus exam: Present: normal size, normal contour - Comments Comments: FHR 125 bpm moderate variability +15x15 accels no decels noted. Contractions 2- 3 min apart. CAt. 1 tracing. Results Result Diagrams: 01/02/17 08:30 01/02/17 08:30 Abnormal lab results WBC 11.8 K/mcL (4.3-11.1) H 01/02/17 08:30 Lactate Dehydrogenase 362 Units/L (159-327) H 01/02/17 08:30 All other labs normal. - VTE Reasons for not Prescribing Prophylaxis: Treatment not Indicated - Low risk for VTE
[2017-01-02] MEDS ORDERED: *HR* Ropivacaine/PF 0.2% 10 ML AMPUL EP ONE (13:52)
[2017-01-02] MEDS ORDERED: *HR* FentaNYL (PF) 100 MCG/2 ML VIAL EP ONE (13:52)
[2017-01-02] MEDS ORDERED: *HR* FentaNYL (PF) 100 MCG/2 ML VIAL ONE (13:55)
[2017-01-02] MEDS ORDERED: *HR* Ropivacaine/PF 0.2% 10 ML AMPUL ONE (13:56)
[2017-01-02] MEDS ORDERED: Epidural Premix (fent/bupiv) 110 ML EP ONE ×2 (13:56→20:16)
[2017-01-02] MEDS ORDERED: Epidural Premix (fent/bupiv) 110 ML EP SCH (14:00)
[2017-01-02] MEDS: Penicillin G Potassium 2,500,000 UNIT in D5% in Water 100 ML IVPB SCH ×3 (14:22→22:09)
--- NOTE | 2017-01-02 14:22 | Anesthesia Procedures ---
Date of Encounter: 01/02/17 Time of Encounter: 14:20 Procedures: Anesthesia - Epidural/Spinal Patient ID/Chart reviewed: Yes Patient examined: Yes OB Eval: Gestational age: 39 OB Eval: : 1 OB Eval: Hx Para: 0 OB Eval: Dilated at (cm): 3 OB Eval: Contractions: Non-stressed pattern Consent Obtained: Yes Supplemental Oxygen: None/Room Air Site Prep: Aseptic Technique, Sterile prep and drape, 0.5% Chlorhexidine/Alcohol Patient position: upright Local Anesthetic: Lidocaine 1% Amount of Local Anesthetic used: 3 Touhy Needle Gauge: 18 Touhy Needle Depth (cm): 7 Catheter Depth at Skin (cm): 15 Test Dose (1.5% Lido + Epi): Volume given (mls): 3 Test Dose Result: Negative Loading Dose: Fentanyl (mcg): 100 Loading Dose: Other: ropivicaine 0.2% 10 cc Loading Dose Administered: Thru Touhy Needle Infusion Med: 0.125% Bupivacaine w/ 2 mcg/ml Fentanyl Infusion Rate (mls/hr): 15 (pcea 5 cc q30") Catheter Secured in Place: Tegaderm Interspace Used: L2-L3 Loss of Resistance (MABLE): Yes Blood: No CSF: No Paresthesia: No Procedure: tolerated well.aseptic throughout, VSS Vitals + FHT's: 140/80 77 16 fht 124
[2017-01-02] MEDS ORDERED: Oxytocin 20 units/ LR 1000 mL 20 UNIT/1,000 ML BAG IVC SCH (16:15)
[2017-01-02] MEDS ORDERED: Lidocaine 1% 20 ML MDV ONE (23:11)
--- NOTE | 2017-01-03 00:41 | OB/GYN Procedure Note ---
Delivery - Delivery Date: 01/03/17 Provider: Hilario Najera Intrapartum events: none Delivery induction: misoprostol Delivery augmentation: pitocin Delivery monitor: external FHT, external uterine, internal FHT, internal uterine Anesthesia: epidural Estimated Blood Loss: 400 - Infant (s) A Infant Delivery Date: 01/02/17 Infant Delivery Time: 23:23 Presentation: vertex Position: SYMONE Route of delivery: vacuum extraction Gender: Male Viability: Viable Weight Gram: 3.045 kg at 1 minute: 9 at 5 mins: 9 Shoulder Dystocia: not encountered Specimens collected: cord blood Cord: 2 umbilical vessels, 3 umbilical vessels - Repair Episiotomy: midline Laceration Description: Perineal - 3rd Degree - Complications Delivery complications: none - Disposition Mom disposition: stable in LDR disposition: stable in LDR - Comments Comments: Upon achieving complete dilation did develop class III tracing. Patient's room good maternal effort however having recurrent deep prolonged decelerations consisting initially in the 60s for quite prolonged time however bouncing back to the 90s to 120s. She maintained good variability. Did discuss with patient options because of the prolonged decelerations either attempted vacuum extraction or emergency section and preparations were made for emergency section. I did discuss risks of vacuum extraction versus section. She was informed of risk of vacuum extraction then chose placement. Latter was drained and Kiwi vacuum was applied at +2-3 station. With good maternal effort first Kiwi was applied for 7 seconds before pop-off, second Kiwi attempt lasting 30 seconds before and voluntary pop-off the pressure each time was 550 mmHg. We again progression of the head with each pull. After the third pull less than 46 seconds X patient had excellent maternal effort and was at +3 station. Did discuss with patient options and cut and episiotomy and she agreed. 1% lidocaine with epinephrine was injected in the second-degree laceration was. Infant was delivered from right also anterior presentation was mainly vigorous and placed on maternal abdomen. Of note Apgars were 9 at 1 minute and 9 at 5 minutes.
[2017-01-03] MEDS ORDERED: Sennosides 8.6 MG TABLET PO PRN (08:26)
[2017-01-03] MEDS ORDERED: Measles/Mumps/Rubella Vacc 0.5 ML VIAL SQ PRN (08:26)
[2017-01-03] MEDS ORDERED: Oxytocin 20 units/ LR 1000 mL 20 UNIT/1,000 ML BAG IVC ONE (08:26)
[2017-01-03] MEDS ORDERED: Benzocaine/Menthol 56 GM AEROSOL SPRAY TP PRN (08:26)
[2017-01-03] MEDS ORDERED: *HR* HYDROcodone/Acet 5/325 mg TABLET PO PRN (08:26)
[2017-01-03] MEDS ORDERED: Rho Immune Globulin 1,500 UNIT SYRINGE IM PRN (08:26)
[2017-01-03] MEDS ORDERED: Acetaminophen 325 MG TABLET PO PRN (08:26)
[2017-01-03] MEDS ORDERED: Oxytocin 20 units/ LR 1000 mL 20 UNIT/1,000 ML BAG IVC SCH (08:30)
[2017-01-03] MEDS: Prenatal Vit/FA 1 EACH TABLET PO SCH (09:06)
[2017-01-03] MEDS: Ibuprofen 600 MG TABLET PO PRN ×2 (09:06→20:57)
--- NOTE | 2017-01-03 09:53 | OB/GYN Progress Note ---
Date of Encounter: 01/03/17 Time of Encounter: 09:58 - Assessment and Plan (1) Vaginal delivery Current Visit: Yes Status: Acute Continue routine care Monitor vital signs - currently stable Discharge home tomorrow with baby Subjective - Subjective Principal diagnosis: Vaginal Delivery Interval history: Patient is doing well s/p vaginal delivery day 1 Pain is well controlled Tolerating regular diet without difficulty No difficulty voiding or passing flatus Lochia is moderate and without clots is going well Anticipate discharge home tomorrow. Patient reports: appetite normal, voiding normally, pain well controlled, ambulating normally : doing well, nursing well Objective - Latest Vital Signs Latest vital signs: Vital Signs Temp Pulse Resp BP Pulse Ox 01/03/17 08:33 98.2 F 86 18 137/93 97 01/03/17 04:00 97.9 F 79 16 125/75 97 01/03/17 03:00 98.0 F 88 16 130/76 98 01/03/17 02:00 98.1 F 99 14 133/81 99 Intake and Output 01/02/17 01/03/17 01/03/17 23:59 07:59 15:59 Intake Total 200 / 200 0 / 0 Output Total 1300 / 1300 1900 / 1900 Balance -1100 / -1100 -1900 / -1900 Intake: IV Fluids 200 / 200 Pfizerpen 2,500,000 UNIT 200 / 200 In Dextrose 5% 100 ML @ 200 mls/hr IVPB Q4H [facility] Rx#:[id number] Oral 0 / 0 Output: Urine 1900 / 1900 Catheter 1300 / 1300 Other: Weight 77.428 kg Patient Weight 01/03/17 23:59 Weight 77.428 kg - Exam Lungs: bilateral: normal Extremities: Present: normal Abdomen: Present: normal appearance, soft. Absent: gravid, tenderness Uterus: Present: normal, firm Uterus Position: At Umbilicus, Midline - Labs Labs: Laboratory Results - last 24 hr 01/02/17 23:41 Baby's Blood Type O RH NEGATIVE Mother's Blood Type A RH NEGATIVE Rhogam Indicated NO
[2017-01-04] MEDS: Prenatal Vit/FA 1 EACH TABLET PO SCH (08:28)
[2017-01-04 08:55] VITALS: BP 126/80
--- NOTE | 2017-01-04 09:58 | Discharge Summary ---
Date of Encounter: 01/04/17 Time of Encounter: 09:48 - Discharge Diagnosis (1) Vaginal delivery Priority: Primary Status: Acute Comments: Pt feels well meeting all milestones, pain well managed on po pain medication, , desires discharge (2) induced hypertension Priority: Primary Status: Acute Qualifiers: Trimester: third trimester Qualified Code(s): O13.3 - Gestational [ -induced] hypertension without significant proteinuria, third trimester - Discharge Medications Prescriptions: Ibuprofen [Motrin] 600 mg PO Q6HR PRN #60 tab PRN Reason: Mild To Moderate Pain Docusate [Colace] 100 mg PO BID #60 Labetalol [Trandate] 100 mg PO BID #60 tab Home Medications: Buspirone HCl [Buspar] 5 mg PO BID 12/13/16 [History] Vit Calc,Iron,Folic [ Vitamins] 1 tab PO DAILY 12/13/16 [ History] Labetalol [Trandate] 100 mg PO BID 01/02/17 [History] Acetaminophen [Tylenol] 650 mg PO Q6HR PRN tab 01/04/17 [Rx] Benzocaine/Menthol [place] [Dermoplast [place]] 1 appl TP QID PRN aerosol 01/04/17 [Rx] Docusate [Colace] 100 mg PO BID #60 01/04/17 [Rx] Ibuprofen [Motrin] 600 mg PO Q6HR PRN #60 tab 01/04/17 [Rx] Labetalol [Trandate] 100 mg PO BID #60 tab 01/04/17 [Rx] Vit/FA 1 each PO DAILY tab 01/04/17 [Rx] Allergies/Adverse Reactions: Allergies cefuroxime [From Ceftin] Allergy (Verified 12/14/16 23:03) Vomiting Data Procedures and tests throughout hospitalization: Laboratory Tests 01/02/17 01/02/17 01/02/17 08:30 08:30 23:41 WBC 11.8 H RBC 4.09 Hgb 12.3 Hct 36.4 MCV 89.0 MCH 30.1 MCHC 33.8 RDW 14.4 Plt Count 242 MPV 9.7 Immature Gran % 1.0 Seg Neutrophils % 67.1 Lymphocytes % 23.4 Monocytes % 6.6 Eosinophils % 1.4 Basophils % 0.5 Neutrophils # 7.9 Lymphocytes # 2.8 Monocytes # 0.8 Eosinophils # 0.2 Basophils # 0.1 BUN 10 Creatinine 0.68 Est GFR ( Amer) > 60 Est GFR (Non-Af Amer) > 60 BUN/Creatinine Ratio 15 Uric Acid 6.0 AST 17 ALT 8 Lactate Dehydrogenase 362 H Baby's Blood Type O RH NEGATIVE Mother's Blood Type A RH NEGATIVE Rhogam Indicated NO Date of admission: 01/02/17 08:06 Primary care physician: Rajesh Davies Consults: 01/03/17 08:26 Consult to Land Survey Technician [CONS] Routine Comment: Vaginal delivery, consult needed Discharging clinician: Ayla Jesus Anticipated date of discharge: 01/04/17 - Patient Status Disposition: Home, Self-Care Condition: Good Functional capacity at discharge: independent ambulation Overall status at discharge: patient is back to baseline - Discharge Instructions Follow Up With: Rajesh Davies DO [Primary Care Provider] - Hilario Najera MD [Partnered Physician] - - Diet and Activity Activity: resume usual activities as tolerated Diet: regular diet Hospital Course Reason for admission: induction of labor Delivery: Episiotomy: midline Laceration: 3rd degree Other procedures: none complications: none Discharge diagnosis: IUP at term delivered baby: male Hospital course: Delivery - Delivery Date: 01/03/17 Provider: Hilario Najera Intrapartum events: none Delivery induction: misoprostol Delivery augmentation: pitocin Delivery monitor: external FHT, external uterine, internal FHT, internal uterine Anesthesia: epidural Estimated Blood Loss: 400 - Infant (s) A Infant Delivery Date: 01/02/17 Infant Delivery Time: 23:23 Presentation: vertex Position: SYMONE Route of delivery: vacuum extraction Gender: Male Viability: Viable Weight Gram: 3.045 kg at 1 minute: 9 at 5 mins: 9 Shoulder Dystocia: not encountered Specimens collected: cord blood Cord: 2 umbilical vessels, 3 umbilical vessels - Repair Episiotomy: midline Laceration Description: Perineal - 3rd Degree - Complications Delivery complications: none - Disposition Mom disposition: stable in PP and appropriate for discharge Time Attestation: Total time spent providing and/or coordinating discharge services: Time Spent: Less than 30 minutes Exam - Constitutional Vitals: Temp Pulse Resp BP Pulse Ox 97.7 F 77 12 126/80 99 01/04/17 08:53 01/04/17 08:53 01/04/17 08:53 01/04/17 08:53 01/04/17 08:53 General appearance IM: A&O X 3 - Respiratory Respiratory exam: Present: CTAB - Cardiovascular Cardiovascular exam IM: Present: RRR - GI/Abdominal GI/Abdominal exam IM: soft - Uterine Tone: Firm Uterus Position: At Umbilicus - Neurological Exam Neurological exam: normal gait, oriented X3, reflexes normal - Psychiatric Additional comments: reports good mood.
[2017-01-04] MEDS ORDERED: Lanolin 7 G OINT...G. TP PRN (10:20)
[2017-01-04] MEDS ORDERED: Water for inj. (sterile) 10 ML IV ONE (13:03)
== END 2017-01-04 15:10 | disposition home or self-care (01) | DRG 560 ==
LOC: 1NENULAB 08:06 → 1NENUOBS 01-03 02:17
PROVIDERS: ADMIT Obstetrics & Gynecology; ATTEND Obstetrics & Gynecology